=== PATIENT | female | born 1970 | race African-American/Black ===

== ENCOUNTER 2016-06-12 20:26 | Emergency (ER) | payer MEDICARE, OTHER ==
[~2016-06-12] VITALS: Ht 157.5 cm; Wt 114.3 kg
[~2016-06-12 20:26] MED LIST: ALPR1TAB2 PO; ASPI81TA2 PO; ATEN25TA PO; ATOR10TA60 PO; CYCL10TA2 PO; DICY10CA3 PO; DOCU-27 PO; DULO20CA PO; ESOM40CA25 PO; FLUT100D IH; FLUT16SP NS; HYDR-2666 PO; HYDR25TA9 PO; IPRA4AER IH; LORA10TA3 PO; LORA10TA65 PO; METF10002 PO; MONT10TA9 PO; Oxycodone Hcl/Acetaminophen PO; RANI300C PO
[2016-06-12 21:19] LABS: BASO # 0.1 x10^3/uL (0.0-0.2); BASO % 1 % (0-3); EOS % 4 % (0-3); HEMATOCRIT 35.7 % (36.0-47.0); HEMOGLOBIN 11.7 g/dL (12.0-15.5); LYMPH # 2.6 x10^3/uL (1.0-4.8); LYMPH % 34 % (24-48); MEAN CORPUSCULAR HEMOGLOBIN 27 pg (25-35); MEAN CORPUSCULAR HGB CONC 33 g/dL (31-37); MEAN CORPUSCULAR VOLUME 83 fL (79-100); MONO % 8 % (0-9); NEUT % 54 % (31-73); PLATELET COUNT 260 x10^3/uL (140-400); RED BLOOD COUNT 4.31 x10^6/uL (3.50-5.40); RED CELL DISTRIBUTION WIDTH 15.8 % (11.5-14.5); WHITE BLOOD COUNT 7.6 x10^3/uL (4.0-11.0)
[2016-06-12] MEDS ORDERED: ASPIRIN CHEWABLE 81 MG TABLET. PO ONE (21:45)
[2016-06-12] MEDS: NITROGLYCERIN SUBLINGUAL 0.4 MG BOTTLE OF 25. SL PRN ×3 (22:20→23:12)
[2016-06-12 22:35] LABS: ALBUMIN 3.4 g/dL (3.4-5.0); CREATININE 1.1 mg/dL (0.6-1.0); DIRECT BILIRUBIN 0.2 mg/dL (0.0-0.2); POTASSIUM 3.1 mmol/L (3.5-5.1); TOTAL BILIRUBIN 0.6 mg/dL (0.2-1.0); TOTAL PROTEIN 6.6 g/dL (6.4-8.2)
[2016-06-12] MEDS ORDERED: ACETAMINOPHEN 325 MG TABLET. PO ONE ×2 (23:00)
[2016-06-12] MEDS ORDERED: ASPI81TA2 PO ×2 (23:06→23:56)
--- NOTE | 2016-06-12 23:08 | PHYS DOC ---
Past Medical History Past Medical History: Asthma, COPD, Diabetes-Type II, GERD, Hypertension, IBS, Other Additional Past Medical Histor: CIERA ROSALES Past Surgical History: Hysterectomy, Knee Replacement, Other Additional Past Surgical Histo: DNC, FIBROID TUMOR REMOVED Alcohol Use: None Drug Use: None Adult General Chief Complaint Chief Complaint: CHEST PAIN HPI HPI 45-year-old female presenting the emergency department with chest pain. The chest pain is on her right side. It started approximately 20 minutes prior to arrival. She describes it as sharp. It radiates to her right arm. She has a history of hypertension and diabetes. The pain is moderate to severe. No alleviating or exacerbating factors present. Review of systems is negative for abdominal pain nausea vomiting or diaphoresis. All other review of systems is negative unless otherwise noted in history of present illness. Review of Systems Review of Systems SEE ABOVE. Current Medications Current Medications Current Medications Medications (Trade) Dose Ordered Sig/Louann Start Time Stop Time Status Last Admin Dose Admin Acetaminophen (Tylenol) 650 mg 1X ONCE 06/12/16 23:00 06/12/16 23:01 DC 06/12/16 23:09 650 MG Aspirin (Children'S Aspirin) 324 mg 1X ONCE 06/12/16 21:45 06/12/16 21:46 DC Nitroglycerin (Nitrostat) 0.4 mg PRN Q5MIN PRN 06/12/16 22:15 06/13/16 01:56 DC 06/12/16 23:12 0.4 MG Potassium Chloride (Klor-Con) 20 meq 1X ONCE 06/12/16 23:15 06/12/16 23:16 DC 06/12/16 23:09 20 MEQ Allergies Allergies Allergies Coded Allergies Type Severity Reaction Last Updated Verified Penicillins Allergy Mild 08/24/13 Yes Sulfa (Sulfonamide Antibiotics) Allergy Mild 08/24/13 Yes celecoxib Allergy Mild 08/24/13 Yes fluconazole Allergy Mild 08/24/13 Yes latex Allergy Mild 08/24/13 Yes metronidazole Allergy Mild 08/24/13 Yes sulfamethoxazole Allergy Mild 08/24/13 Yes trimethoprim Allergy Mild 08/24/13 Yes morphine Allergy Unknown hives and itching 09/22/14 Yes Physical Exam Physical Exam Constitutional: Well developed, well nourished, no acute distress, non-toxic appearance. HENT: Normocephalic, atraumatic, bilateral external ears normal, oropharynx moist, no oral exudates, nose normal. [] Eyes: PERRLA, EOMI, conjunctiva normal, no discharge. Neck: Normal range of motion, no tenderness, supple, no stridor. [] Cardiovascular:Heart rate regular rhythm, no murmur Lungs & Thorax: Bilateral breath sounds clear to auscultation [] Abdomen: Bowel sounds normal, soft, no tenderness, no masses, no pulsatile masses. Skin: Warm, dry, no erythema, no rash. [] Back: No tenderness, no CVA tenderness. Extremities: No tenderness, no cyanosis, no clubbing, ROM intact, no edema. [] Neurologic: Alert and oriented X 3, normal motor function, normal sensory function, no focal deficits noted. Psychologic: Affect normal, judgement normal, mood normal. [] Current Patient Data Vital Signs Vital Signs Date Time Temp Pulse Resp B/P Pulse Ox O2 Delivery O2 Flow Rate FiO2 06/13/16 01:30 76 18 111/66 98 Room Air 06/12/16 20:31 98.2 98.2 Lab Values Laboratory Tests Test 06/12/16 21:00 06/12/16 22:00 06/13/16 01:00 White Blood Count 7.6x10^3/uL (4.0-11.0) Red Blood Count 4.31x10^6/uL (3.50-5.40) Hemoglobin 11.7g/dL (12.0-15.5) L Hematocrit 35.7% (36.0-47.0) L Mean Corpuscular Volume 83fL (79-100) Mean Corpuscular Hemoglobin 27pg (25-35) Mean Corpuscular Hemoglobin Concent 33g/dL (31-37) Red Cell Distribution Width 15.8% (11.5-14.5) H Platelet Count 260x10^3/uL (140-400) Neutrophils (%) (Auto) 54% (31-73) Lymphocytes (%) (Auto) 34% (24-48) Monocytes (%) (Auto) 8% (0-9) Eosinophils (%) (Auto) 4% (0-3) H Basophils (%) (Auto) 1% (0-3) Neutrophils # (Auto) 4.1x10^3uL (1.8-7.7) Lymphocytes # (Auto) 2.6x10^3/uL (1.0-4.8) Monocytes # (Auto) 0.6x10^3/uL (0.0-1.1) Eosinophils # (Auto) 0.3x10^3/uL (0.0-0.7) Basophils # (Auto) 0.1x10^3/uL (0.0-0.2) Sodium Level 135mmol/L (136-145) L Potassium Level 3.1mmol/L (3.5-5.1) L Chloride Level 101mmol/L (98-107) Carbon Dioxide Level 32mmol/L (21-32) Anion Gap 2 (6-14) L Blood Urea Nitrogen 11mg/dL (7-20) Creatinine 1.1mg/dL (0.6-1.0) H Estimated GFR (Cockcroft-Gault) 65.0 Glucose Level 136mg/dL (70-99) H Calcium Level 9.0mg/dL (8.5-10.1) Total Bilirubin 0.6mg/dL (0.2-1.0) Direct Bilirubin 0.2mg/dL (0.0-0.2) Aspartate Amino Transferase (AST) 13U/L (15-37) L Alanine Aminotransferase (ALT) 20U/L (14-59) Alkaline Phosphatase 56U/L (46-116) Troponin I Quantitative < 0.017ng/mL (0.000-0.055) < 0.017ng/mL (0.000-0.055) WW-[id number]-Type Natriuretic Peptide 36pg/mL (0-124) Total Protein 6.6g/dL (6.4-8.2) Albumin 3.4g/dL (3.4-5.0) Lipase 223U/L (73-393) Laboratory Tests 06/12/16 21:00 Laboratory Tests 06/12/16 22:00 EKG EKG EKG shows sinus rhythm with a regular rate. Board axis. QRS within normal limits. ST segments are congruent. [] Radiology/Procedures Radiology/Procedures Chest x-ray reviewed by myself shows no obvious infiltrate or pneumothorax present. No obvious acute cardiopulmonary process present.[] Course & Med Decision Making Course & Med Decision Making Pertinent Labs and Imaging studies reviewed. (See chart for details) 45-year-old female presenting to the emergency department with chest pain. Vital signs unremarkable. Physical exam unremarkable. EKG unremarkable. Chest x- ray unremarkable labs unremarkable. Repeat troponin negative. The patient was subsequent discharged home to follow up with her primary care doctor over the next 2-3 days. I prescribed her aspirin. HEART score of 1. Dragon Disclaimer Dragon Disclaimer This electronic medical record was generated, in whole or in part, using a voice recognition dictation system. Departure Departure Impression: Primary Impression: CHEST PAIN, UNSPECIFIED Disposition: HOME, SELF-CARE Condition: STABLE Referrals: UNKNOWN PCP NAME (PCP) SELENA BALLARD MD Patient Instructions: Chest Pain (Nonspecific) Additional Instructions: Thank you for allowing us to participate in your care today. Followup with your primary care physician in 3 days if your symptoms do not improve. If you do not have a primary care provider you can ask for a list of our primary care providers. Return to the emergency department you have any new or concerning findings. This should be evaluated by the primary care physician and any necessary consulting services for continued management within a few days after discharge. Return to emergency room if you have any new or concerning symptoms including but not limited to fever, chills, nausea, vomiting, intractable pain, any new rashes, chest pain, shortness of air, uncontrolled bleeding, difficulty breathing, and/or vision loss. Scripts Aspirin 81 Mg Tab.chew1 Tab PO DAILY #14 TAB Ref 3 Prov:JOSÉ DALY MD 06/12/16 Aspirin 81 Mg Tab.chew1 Tab PO DAILY #14 TAB Ref 3 Prov:JOSÉ DALY MD 06/12/16 JOSÉ DALY MD Jun 12, 2016 23:08
[2016-06-12] MEDS ORDERED: POTASSIUM CHLORIDE 20 MEQ TABLET.ER. PO ONE (23:15)
[2016-06-13 01:30] VITALS: BP 111/66
--- NOTE | 2016-06-13 06:15 | EKG ---
[facility] [address] [place] [address] Test Date: 2016-06-12 Test Time: 20:41:46 Pat Name: CECILIA PAYAN Department: Room: Gender: F Tool Repairer: : 1970 Requested By: JOSÉ DALY Order Number: [id number] Reading MD: Measurements Intervals [place] Rate: 84 P: 32 [place]: 172 QRS: -19 QRSD: 94 T: 21 QT: 378 QTc: 450 Interpretive Statements SINUS RHYTHM LEFTWARD AXIS QRS(T) CONTOUR ABNORMALITY CONSISTENT WITH ANTEROSEPTAL INFARCT AGE UNDETERMINED ABNORMAL ECG RI6.01 No previous ECG available for comparison
--- NOTE | 2016-06-13 07:32 | RAD ---
Exam: AP portable chest. History: Chest pain, bilateral leg swelling. Comparison: None. Findings: The heart and mediastinal structures are within normal limits for size. Lungs are without infiltrate. No pneumothorax or pleural effusion is appreciated. Impression: 1. No acute cardiopulmonary process.
== END 2016-06-13 01:40 | disposition home or self-care (01) ==
LOC: ER 20:26
DX: R07.9 Chest pain, unspecified (principal); I10 Essential (primary) hypertension; E11.9 Type 2 diabetes mellitus without complications; J45.909 Unspecified asthma, uncomplicated; J44.9 Chronic obstructive pulmonary disease, unspecified; K21.9 Gastro-esophageal reflux disease without esophagitis; Z90.710 Acquired absence of both cervix and uterus; Z96.659 Presence of unspecified artificial knee joint; K58.9 Irritable bowel syndrome, unspecified; Z88.0 Allergy status to penicillin; Z88.5 Allergy status to narcotic agent; Z88.2 Allergy status to sulfonamides; Z88.8 Allergy status to other drugs, medicaments and biological substances; Z91.040 Latex allergy status
CPT/HCPCS: 36415; 71010; 80048; 80076; 83690; 83880; 84484; 85027; 93005; 99285-25

== ENCOUNTER 2017-03-20 18:10 | Emergency (ER) | payer MEDICARE, OTHER ==
[2017-03-20 18:39] LABS: ADD MAN DIFF? NO
[2017-03-20 18:45] LABS: BASO # 0.1 x10^3/uL (0.0-0.2); BASO % 1 % (0-3); EOS # 0.2 x10^3/uL (0.0-0.7); EOS % 2 % (0-3); LYMPH # 2.5 x10^3/uL (1.0-4.8); LYMPH % 36 % (24-48); MEAN CORPUSCULAR HEMOGLOBIN 27 pg (25-35); MEAN CORPUSCULAR HGB CONC 32 g/dL (31-37); MEAN CORPUSCULAR VOLUME 83 fL (79-100); MONO # 0.6 x10^3/uL (0.0-1.1); MONO % 8 % (0-9); NEUT # 3.5 x10^3uL (1.8-7.7); NEUT % 52 % (31-73); PLATELET COUNT 277 x10^3/uL (140-400); RED BLOOD COUNT 4.48 x10^6/uL (3.50-5.40); RED CELL DISTRIBUTION WIDTH 15.3 % (11.5-14.5); WHITE BLOOD COUNT 6.9 x10^3/uL (4.0-11.0)
[2017-03-20] MEDS: ASPIRIN CHEWABLE 81 MG TABLET. PO (18:50)
[2017-03-20 18:56] LABS: ANION GAP 10 (6-14); BLOOD UREA NITROGEN 14 mg/dL (7-20); BUN/CREATININE RATIO 16 (6-20); CALCIUM 9.1 mg/dL (8.5-10.1); CARBON DIOXIDE 30 mmol/L (21-32); CHLORIDE 102 mmol/L (98-107); CREATININE 0.9 mg/dL (0.6-1.0); GFR 81.6; GLUCOSE 129 mg/dL (70-99); POTASSIUM 3.9 mmol/L (3.5-5.1); SODIUM 142 mmol/L (136-145)
[2017-03-20 19:01] LABS: ALBUMIN 3.4 g/dL (3.4-5.0); ALK PHOS 51 U/L (46-116); ALT (SGPT) 13 U/L (14-59); AST (SGOT) 9 U/L (15-37); TOTAL BILIRUBIN 0.3 mg/dL (0.2-1.0); TOTAL PROTEIN 6.9 g/dL (6.4-8.2)
[2017-03-20 19:02] LABS: TROPONINI < 0.017 ng/mL (0.000-0.055)
[2017-03-20] MEDS: HYDROcodone/APAP 5/325MG 1 TAB TABLET PO (19:16)
[2017-03-20] MEDS: KETOROLAC 30 MG/ML INJ. IV (19:16)
[2017-03-20] MEDS ORDERED: IOHEXOL 300 MG/ML 100ML VIAL. IV (19:30)
[2017-03-20] MEDS: ALPRAZolam 0.5 MG TABLET PO (19:34)
== END 2017-03-20 21:55 | disposition home or self-care (01) ==
LOC: ER 18:10
DX: R07.89 Other chest pain (principal); F41.9 Anxiety disorder, unspecified; J44.9 Chronic obstructive pulmonary disease, unspecified; E11.9 Type 2 diabetes mellitus without complications; K21.9 Gastro-esophageal reflux disease without esophagitis; I10 Essential (primary) hypertension; K58.9 Irritable bowel syndrome, unspecified; E66.01 Morbid (severe) obesity due to excess calories; E78.00 Pure hypercholesterolemia, unspecified; Z88.2 Allergy status to sulfonamides; Z88.1 Allergy status to other antibiotic agents; Z91.040 Latex allergy status; Z88.5 Allergy status to narcotic agent; Z88.8 Allergy status to other drugs, medicaments and biological substances; Z86.718 Personal history of other venous thrombosis and embolism; Z68.42 Body mass index [BMI] 45.0-49.9, adult; Z90.710 Acquired absence of both cervix and uterus; Z96.659 Presence of unspecified artificial knee joint; Z88.0 Allergy status to penicillin
CPT/HCPCS: 36415; 71045; 71275; 80053; 84484; 85025; 93005; 96374; 99285-25; J1885